=== PATIENT | female | born 1980 | race Caucasian/White ===

== ENCOUNTER 2017-07-20 15:55 | Emergency (ER) | payer SELFPAY ==
[2017-07-20 16:09] VITALS: BP 121/68
--- NOTE | 2017-07-20 16:19 | PHYS DOC ---
Adult General Chief Complaint Chief Complaint: KNEE INJURY HPI HPI Patient is a 36 year old female who presents with moderate throbbing left knee pain that began today. Patient states she was about to fall when she heard a loud pop from her left knee. Patient states the pain is worse on range of motion. Review of Systems Review of Systems Constitutional: Denies fever or chills [] Musculoskeletal: Moderate left knee pain Integument: Denies rash or skin lesions [] Neurologic: Denies headache, focal weakness or sensory changes [] All other systems were reviewed and found to be within normal limits, except as documented in this note. Current Medications Current Medications Current Medications Medications (Trade) Dose Ordered Sig/Fabrizio Start Time Stop Time Status Last Admin Dose Admin Acetaminophen/ Hydrocodone Bitart (Lortab 5/325) 2 tab 1X ONCE 07/20/17 16:30 07/20/17 16:31 DC 07/20/17 16:29 2 TAB Allergies Allergies Allergies Coded Allergies Type Severity Reaction Last Updated Verified No Known Drug Allergies 07/20/17 No Physical Exam Physical Exam Constitutional: Well developed, well nourished, no acute distress, non-toxic appearance. [] Skin: Warm, dry, no erythema, no rash. [] Back: No tenderness, no CVA tenderness. [] Extremities: Left knee with no obvious deformity. Tenderness on palpation of the left anterior knee. Slightly Limited range of motion to the left knee especially flexion. Adequate extension to the left knee.Adequate Gucci sign, +2 left pedal pulse. Neurologic: Alert and oriented X 3, normal motor function, normal sensory function, no focal deficits noted. [] Psychologic: Affect normal, judgement normal, mood normal. [] Current Patient Data Vital Signs Vital Signs Date Time Temp Pulse Resp B/P (MAP) Pulse Ox O2 Delivery O2 Flow Rate FiO2 07/20/17 16:29 16 Room Air 07/20/17 16:09 98.1 111 100 98.1 EKG EKG [] Radiology/Procedures Radiology/Procedures []PROCEDURE: KNEE LEFT 4V Left knee with patella, 4 views, 07/20/2017: History: Fall, pain No fracture or or dislocation is identified. No joint effusion is seen. IMPRESSION: No acute left knee abnormality is detected. DICTATED and SIGNED BY: LUCHO BEACH MD DATE: 07/20/17 5609 CC: CARLOS AUGUSTE MD; JAMIE CASTILLO APRN ~ Course & Med Decision Making Course & Med Decision Making Pertinent Labs and Imaging studies reviewed. (See chart for details) Patient is in the ED with left knee pain, she was about to fall and heard a pop sound from the knee. Left knee x-rays interpreted by radiologist were negative for any acute findings. Patient was placed in a left knee immobilizer by the ED RN, neurovascular exam is intact. Ice elevation encouraged. Follow-up with orthopedic doctor in one week. Dragon Disclaimer Dragon Disclaimer This electronic medical record was generated, in whole or in part, using a voice recognition dictation system. Departure Departure Impression: Primary Impression: Left knee sprain Disposition: HOME, SELF-CARE Condition: STABLE Referrals: RUSLAN DIAL MD Follow-up in one week Patient Instructions: Knee Sprain Additional Instructions: You were seen for left knee sprain. Ice and elevate the extremity. Follow-up with the provided orthopedic doctor or your own doctor in one week if pain continues. Take the prescribed medicines as ordered. Scripts Methylprednisolone (MEDROL) 4 Mg Tab.ds.pk 1 PKG PO UD, #1 PKG Prov: JAMIE CASTILLO APRN 07/20/17 Tramadol Hcl (ULTRAM) 50 Mg Tablet 1 TAB PO Q6HRS, #30 TAB Prov: JAMIE CASTILLO APRN 07/20/17 Problem Qualifiers Primary Impression: Left knee sprain Encounter type: initial encounter Involved ligament of knee: unspecified ligament Qualified Codes: S83.92XA - Sprain of unspecified site of left knee, initial encounter JAMIE CATSILLO APRN Jul 20, 2017 16:19
--- NOTE | 2017-07-20 16:28 | RAD ---
Left knee with patella, 4 views, 07/20/2017: History: Fall, pain No fracture or or dislocation is identified. No joint effusion is seen. IMPRESSION: No acute left knee abnormality is detected.
[2017-07-20] MEDS ORDERED: HYDROcodone/APAP 5/325MG 1 TAB TABLET PO ONE (16:30)
[2017-07-20] MEDS ORDERED: TRAM-48 PO (16:42)
[2017-07-20] MEDS ORDERED: METH4TAB2 PO (16:42)
== END 2017-07-20 16:49 | disposition home or self-care (01) ==
LOC: ER 15:55
DX: S83.92XA Sprain of unspecified site of left knee, initial encounter (principal); W19.XXXA Unspecified fall, initial encounter; Y93.89 Activity, other specified; Y99.8 Other external cause status; Y92.89 Other specified places as the place of occurrence of the external cause
CPT/HCPCS: 29505; 73564; 99284-25